=== PATIENT | male | born 1960 | race Caucasian/White ===

== ENCOUNTER 2018-01-28 12:08 | Day surgery (SDC) | payer BC ==
[~2018-01-28] VITALS: Ht 185.4 cm; Wt 97.5 kg
[~2018-01-28 12:08] MED LIST: LEVO-T88 MCG PO; Prinivil10 MG PO
== END 2018-01-28 14:39 | disposition home or self-care (01) ==
LOC: ORSCSDS 12:08
PROVIDERS: Surgery
PROC: 0DBH8ZX Excision of Cecum, Via Natural or Artificial Opening Endoscopic, Diagnostic (ICD-10-PCS; principal; 2018-01-28 14:00)
DX: Z12.11 Encounter for screening for malignant neoplasm of colon (principal); D12.0 Benign neoplasm of cecum; F32.9 Major depressive disorder, single episode, unspecified; I10 Essential (primary) hypertension; Z87.891 Personal history of nicotine dependence; Z79.899 Other long term (current) drug therapy
CPT/HCPCS: 88305; J7120

== ENCOUNTER 2021-08-28 11:35 | Emergency (ER) | payer BC ==
[~2021-08-28] VITALS: Ht 185.4 cm; Wt 97.5 kg
[2021-08-28] MEDS ORDERED: ATOR20 PO (11:45)
== END 2021-08-28 12:23 | disposition home or self-care (01) ==
LOC: ER 11:35
DX: S56.912A Strain of unspecified muscles, fascia and tendons at forearm level, left arm, initial encounter (principal); X58.XXXA Exposure to other specified factors, initial encounter
CPT/HCPCS: 99283

== ENCOUNTER → 2022-07-04 | Outpatient (CLI) | payer BC ==
[~2022-07-04] MED LIST changes: +ATOR20 PO
[2022-07-07 13:11] LABS: SPOTTED FEVER GROUP IGG <1:64 (Neg:<1:64); SPOTTED FEVER GROUP IGM <1:64 (Neg:<1:64); TYPHUS FEVER GROUP IGG <1:64 (Neg:<1:64); TYPHUS FEVER GROUP IGM <1:64 (Neg:<1:64)
== END ==
LOC: LAB SHORT 14:35 → LAB 14:35
PROVIDERS: Physician Assistant
DX: R50.9 Fever, unspecified (principal)
CPT/HCPCS: 86757

== ENCOUNTER → 2023-12-26 | Outpatient (CLI) | payer BC ==
[~2023-12-26] MED LIST changes: +BUPROPION HCL200 M1 PO
[2023-12-27 11:38] LABS: Stool Occult Bld Immuno 1 Negative (NEGATIVE)
== END | disposition home or self-care (01) ==
LOC: LAB SHORT 18:58 → LAB 18:58
PROVIDERS: Family Medicine
DX: Z12.11 Encounter for screening for malignant neoplasm of colon (principal)
CPT/HCPCS: G0328